=== PATIENT | female | born 1985 | race Caucasian/White ===

== ENCOUNTER 2025-05-22 14:17 | Outpatient (CLI) | payer OTHER | END 2025-05-22 14:18 | disposition home or self-care (01) | LOC: SCSMRI 14:17 | PROVIDERS: ATTEND Family Medicine | DX: N94.89 Other specified conditions associated with female genital organs and menstrual cycle (principal); D25.0 Submucous leiomyoma of uterus | CPT/HCPCS: 72197 ==